=== PATIENT | female | born 2005 | race Caucasian/White ===

== ENCOUNTER 2024-08-07 17:04 | Emergency (ER) | payer OTHER, SELFPAY ==
--- NOTE | 2024-08-07 17:05 | ED.GENMED ---
ED Provider Triage
<Khadijah Vizcarra PA-C - Last Filed: 08/07/24 18:19>
-
Patient seen by provider in Triage?: Seen in Triage
Attestation: A medical screening examination has been initiated by a qualified medical provider. Based on the assessment performed at this time, it has been determined that an emergent medical condition may exist and the patient has been informed
that further medical evaluation and possible additional diagnostic testing may be needed.
HPI: 18yoF here with asthma symptoms. Started with URI symptoms and sore throat yesterday. No relief with rescue inhaler. No prior hospitalizations for asthma.
GENERAL: Alert , in no apparent distress
EYE: No visual abnormalities.
NECK: Trachea midline
ENT: No visible abnormalities.
LUNGS: No acute respiratory distress
NEUROLOGICAL: Alert and oriented
SKIN: Skin intact. No visible changes.
MUSCULOSKELETAL: Moving extremities normally
PSYCH: Normal and appropriate interaction.
This is a medical evaluation conducted in person to initiate diagnostic evaluation and provide initial therapeutics. Please see further documentation by the treating clinician.\\
No respiratory distress noted in triage. COVID/flu swab and DuoNeb ordered.
History of Present Illness
<Khadijah Vizcarra PA-C - Last Filed: 08/07/24 18:19>
General
Chief Complaint: Breathing Problem
Time Seen by Provider: 08/07/24 17:10
<Ney Cartagena DO - Last Filed: 08/07/24 20:12>
General
Source: patient
Exam Limitations: none
Nursing documentation reviewed up to this point in time: agreed with
History of Present Illness
History of Present Illness:
Seen with PA examined independently 18-year-old female told she is asthmatic has an inhaler of albuterol steroid at home sick for a day or so, takes control no fever no hemoptysis no calf pain
Past History
<Khadijah Vizcarra PA-C - Last Filed: 08/07/24 18:19>
Past History
ED Past Medical History: None
ED Past Surgical History: None
Social History
Tobacco: Non-smoker
Alcohol: None
<Ney Cartagena DO - Last Filed: 08/07/24 20:12>
Past History
ED Past Medical History: Asthma
Social History
Drug: None
Personal: Single
Living: with family
Employment: Employed
Review of Systems
<Ney Cartagena DO - Last Filed: 08/07/24 20:12>
Review of Systems
All Other Systems: Not applicable
Constitutional: Denies fever or fatigue
Respiratory: Reports trouble breathing; Denies cough or hemoptysis
Cardiac: Reports no symptoms
ABD/GI: Reports no symptoms
Phy Exam
<Ney Cartagena DO - Last Filed: 08/07/24 20:12>
Physical Exam
Physical Exam:
Physical Exam
General: no apparent distress, not acutely ill receiving a neb
Neck: No jaundice
Heart: s1/s2 regular rate and rhythm, no murmur. equal radial pulses.
Lungs: no acute respiratory distress. clear bilaterally
Neuro: alert and oriented. no focal neurological deficits
Skin: no rash
Psychiatric: well kept. interactive and cooperative
Extremities: no edema. no calf tenderness.
Course
<Khadijah Vizcarra PA-C - Last Filed: 08/07/24 18:19>
Orders/Labs/Results
Orders:
Orders
08/07/24 17:07
Ipratropium/Albuterol Sulfate [Duoneb] 3 ml INH R NOW STA
08/07/24 17:16
COVID-19 Antigen Urgent
Source: Nasal Swab
Influenza A+B Rapid Molecular Urgent
FELIPE Source: Nasal Swab
Specimen Description:
08/07/24 17:39
CR Chest - 2 Views Urgent
Comment:
Reason For Exam: sob
08/07/24 17:40
Test Result ONCE
Peak Flow Rate [RESP] Urgent
Quantity: 1
08/07/24 17:50
Complete Blood Count/With Diff Urgent
Comprehensive Metabolic Panel Urgent
D-Dimer Urgent
HCG, Serum Qualitative Screen Urgent
08/07/24 19:25
Albuterol Nebs [Ventolin Nebules] 2.5 mg INH R NOW STA
Dexamethasone Sod Phosphate [Decadron] 10 mg IV NOW STA
Abnormal Lab Results
08/07/24
17:50
WBC 13.2 H 10^3/uL
(4.8-10.8)
Abs Immat Gran (auto) 0.1 H 10^3/uL
(0-0.05)
Absolute Neuts (auto) 9.3 H 10^3/uL
(1.4-6.5)
Absolute Monos (auto) 1.2 H 10^3/uL
(0.1-0.6)
Lymphocytes % 14.2 L %
(20.5-51.1)
08/07/24 17:50
08/07/24 17:50
Vital Signs
Initial and Last Documented VS:
Initial Vital Signs
Temp Pulse Resp BP Pulse Ox
99.9 F 116 18 133/96 95
08/07/24 17:06 08/07/24 17:06 08/07/24 17:06 08/07/24 17:06 08/07/24 17:06
Last Documented Vital Signs
Temp Pulse Resp BP Pulse Ox
99.9 F 109 18 133/96 100
08/07/24 17:06 08/07/24 18:35 08/07/24 18:35 08/07/24 17:06 08/07/24 18:35
<Ney Cartagena, DO - Last Filed: 08/07/24 20:12>
Orders/Labs/Results
Orders:
Orders
08/07/24 17:07
Ipratropium/Albuterol Sulfate [Duoneb] 3 ml INH R NOW STA
08/07/24 17:16
COVID-19 Antigen Urgent
Source: Nasal Swab
Influenza A+B Rapid Molecular Urgent
FELIPE Source: Nasal Swab
Specimen Description:
08/07/24 17:39
CR Chest - 2 Views Urgent
Comment:
Reason For Exam: sob
08/07/24 17:40
Test Result ONCE
Peak Flow Rate [RESP] Urgent
Quantity: 1
08/07/24 17:50
Complete Blood Count/With Diff Urgent
Comprehensive Metabolic Panel Urgent
D-Dimer Urgent
HCG, Serum Qualitative Screen Urgent
08/07/24 19:25
Albuterol Nebs [Ventolin Nebules] 2.5 mg INH R NOW STA
Dexamethasone Sod Phosphate [Decadron] 10 mg IV NOW STA
Abnormal Lab Results
08/07/24
17:50
WBC 13.2 H 10^3/uL
(4.8-10.8)
Abs Immat Gran (auto) 0.1 H 10^3/uL
(0-0.05)
Absolute Neuts (auto) 9.3 H 10^3/uL
(1.4-6.5)
Absolute Monos (auto) 1.2 H 10^3/uL
(0.1-0.6)
Lymphocytes % 14.2 L %
(20.5-51.1)
08/07/24 17:50
08/07/24 17:50
Vital Signs
Initial and Last Documented VS:
Initial Vital Signs
Temp Pulse Resp BP Pulse Ox
99.9 F 116 18 133/96 95
08/07/24 17:06 08/07/24 17:06 08/07/24 17:06 08/07/24 17:06 08/07/24 17:06
Last Documented Vital Signs
Temp Pulse Resp BP Pulse Ox
99.9 F 109 18 133/96 100
08/07/24 17:06 08/07/24 18:35 08/07/24 18:35 08/07/24 17:06 08/07/24 18:35
<Ney Cartagena DO - Last Filed: 08/07/24 20:12>
MDM/Problems Addressed
Differential Diagnosis Includes:
Asthma bronchitis pneumonia PE
MDM/Problems Addressed:
Shortness of breath
Chronic conditions affecting care: Asthma
Acute Exacerbation and/or Progression of Chronic Illness: Asthma
<Ney Cartagena DO - Last Filed: 08/07/24 20:12>
*Radiology
Radiology exam reviewed: preliminary read by ED provider
*Pulse Oximetry
Patient hypoxic: no
*[employer] Interpretation
Rate: normal
Interpretation: normal
Heart Rate: 78
Rhythm: sinus
*Critical Care Note
Total Time (30-74mins, 75-104mins- exclusive of procedures): Not Applicable
<Ney Cartagena DO - Last Filed: 08/07/24 20:12>
Update Note
Update Note:
Patient subjectively dyspneic relatively quiet chest always she is asthmatic not really wheezing, is on control will check peak flow D-dimer treated with a neb check chest x-ray
Update chest x-ray noted NAD to my eye formal report pending D-dimer noted labs are noted
Patient now wheezing more than moving more air will try neb and steroid
ED Attending Note
<Khadijah Vizcarra PA-C - Last Filed: 08/07/24 18:19>
-
Portions of this chart may have been created with voice recognition software.� Occasional wrong word or��sound alike� substitutions may have occurred due to the inherent limitations of voice recognition software.
Discharge Plan
Departure
Patient Disposition: Home (Routine Discharge)
Date of Disposition: 08/07/24
Time of Disposition: 20:10
Patient with high blood pressure during this ER visit?: No
Condition: Good
Covid-19: Negative COVID-19
Discharge Problem:
Asthma
Instructions: Asthma, Adult (DC)
Prescriptions:
New
prednisone 20 mg tablet
40 mg PO DAILY Qty: 8 0RF
albuterol sulfate [Ventolin HFA] 90 mcg/actuation HFA aerosol inhaler
2 puff inhalation Q6H PRN (Reason: shortness of breath or wheezing) Qty: 8.5 2RF
No Action
ondansetron 4 MG tablet,disintegrating
4 mg PO TIDPRN PRN (Reason: spasm) Qty: 9 0RF
albuterol sulfate [ProAir HFA] 90 mcg/actuation Hfa Aerosol Inhaler
1 puff INHALATION Q4HPRN PRN (Reason: shortness of breath) Qty: 8.5 0RF
fluticasone propion-salmeterol [Advair Diskus] 250-50 mcg/dose blister with device
1 inh inhalation BID Qty: 60 0RF
prednisone 20 mg tablet
40 mg PO DAILY Qty: 10 0RF
Referrals:
Madisyn Chacon MD [Family Provider] -
Interventions
Interventions:
*Risk Screen - Suicide Last Done: 08/07/24 17:06
*General Assessment Last Done: 08/07/24 17:06
*Neglect/Abuse Screening Last Done: 08/07/24 17:06
*ED COVID-19 Vaccine History Last Done: 08/07/24 17:06
ED- Cardiac Assessment Last Done: 08/07/24 17:15
ED- Pulmonary Assessment Last Done: 08/07/24 17:15
Discharge Date and Time
Print Language: [id number]
[2024-08-07 17:06] VITALS: BP 133/96
[2024-08-07] MEDS: DUONEB 3 ML INH (17:17)
[2024-08-07 18:00] LABS: % Basophils 0.8 % (0-2); % Eosinophils 5.1 % (0-6); % Immature Granulocytes 0.4 % (0-0.5); % Lymphocytes 14.2 % (20.5-51.1); % Monocytes 8.9 % (1.7-9.3); % Neutrophils 70.6 % (42.2-75.2); Absolute Basophils 0.1 10^3/uL (0-0.2); Absolute Eosinophils 0.7 10^3/uL (0-0.7); Absolute Immature Granulocytes 0.1 10^3/uL (0-0.05); Absolute Lymphocytes 1.9 10^3/uL (1.2-3.4); Absolute Monocytes 1.2 10^3/uL (0.1-0.6); Absolute Neutrophils 9.3 10^3/uL (1.4-6.5); Hematocrit 43.5 % (37.0-47.0); Hemoglobin 14.9 g/dL (12.0-16.0); Mean Corp Hgb Conc. 34.3 g/dL (33.0-37.0); Mean Corpuscular Hgb 30.6 pg (27.0-31.0); Mean Corpuscular Volume 89.3 fL (81.0-99.0); Mean Platelet Volume 9.4 fL (7.4-10.4); Nucleated Red Blood Cells % 0 %; Platelet Count 300 10^3/uL (130-400); Red Blood Cell Count 4.87 10^6/uL (4.20-5.40); White Blood Cell Count 13.2 10^3/uL (4.8-10.8)
[2024-08-07 18:09] LABS: HCG, Serum Qualitative Screen Negative
[2024-08-07 18:09] LABS: COVID-19 Antigen Negative (Negative)
[2024-08-07 18:12] LABS: D-Dimer < 0.27 ug/mlFEU (0.00-0.50)
[2024-08-07 18:16] LABS: ALT (SGPT) 14 U/L (0-35); AST (SGOT) 16 U/L (14-36); Albumin 4.8 g/dl (3.5-5.0); Alkaline Phosphatase 81 U/L (38-126); Blood Urea Nitrogen 11 mg/dl (7-17); Calcium 9.6 mg/dl (8.4-10.2); Carbon Dioxide 23 mmol/L (22-30); Chloride 106 mmol/L (98-107); Glucose 96 mg/dl (70-99); Potassium 3.8 mmol/L (3.5-5.1); Sodium 142 mmol/L (135-145); Total Bilirubin 0.7 mg/dl (0.2-1.3); Total Protein 7.6 g/dl (6.3-8.2); eGFR > 60.00
[2024-08-07] MEDS: VENTOLIN NEBULES 2.5 MG INH (19:27)
[2024-08-07] MEDS: DECADRON 10 MG IV (19:27)
[2024-08-07 20:53] VITALS: BP 132/79
== END 2024-08-07 20:54 | disposition home or self-care (01) ==
LOC: EMR 17:04
PROVIDERS: Physician Assistant; EMERGENCY PHYSICIAN Emergency Medicine; FAMILY PHYSICIAN Family Medicine
DX: J45.909 Unspecified asthma, uncomplicated (principal)
CPT/HCPCS: 94640; 96374; 99284; 71046; 80053; 84703; 85025; 85379; 87502; 87811

== ENCOUNTER → 2025-01-14 14:56 | Outpatient (REF) | payer OTHER, SELFPAY | LOC: RCS 14:56 | PROVIDERS: ATTENDING PHYSICIAN Family Medicine | DX: R42 Dizziness and giddiness (principal); R55 Syncope and collapse; R00.2 Palpitations | CPT/HCPCS: 71046; 93306 ==